=== PATIENT | female | born 1975 | race Caucasian/White ===

== ENCOUNTER 2017-03-19 18:41 | Emergency (ER) | payer OTHER ==
[2017-03-19 18:55] VITALS: BP 128/81; TEMP 98.1; BMI 26.9
[2017-03-19] MEDS ORDERED: XOPENEX 1.25 MG NEB STA (19:01)
[2017-03-19] MEDS ORDERED: DECADRON 4 MG/ML SDV IM STA (19:01)
[2017-03-19] MEDS ORDERED: DUONEB NEB STA (19:01)
--- NOTE | 2017-03-19 19:23 | CT ---
Exam: CT of the chest without contrast History: Cough Technique: [address] of the chest without intravascular contrast FINDINGS: Lung windows show no significant pulmonary parenchymal opacity. Pectus deformity is pres ent with distortion of cardiac contours. The heart, great vessels and pericardium are unremarkable o therwise. No abnormalities of the chest wall soft tissues. No abnormalities of the upper abdomen. Impression: 1. No acute findings of the chest 2. Pectus deformity
[2017-03-19 19:27] LABS: BASOPHILS % (AUTO) 0.3 % (0.0-3.0); EOSINOPHILS # (AUTO) 0.2 K/ul (0.0-0.7); EOSINOPHILS % (AUTO) 1.7 % (0.0-7.0); HEMATOCRIT 37.4 % (37.0-47.0); IMMATURE GRANULOCYTE % (AUTO) 0.3 % (0.0-5.0); LYMPHOCYTES # (AUTO) 3.6 K/uL (0.60-3.4); LYMPHOCYTES % (AUTO) 34.8 (10.0-50.0); MEAN CORPUSCULAR HEMOGLOBIN 32.6 pg (27.0-31.0); MEAN CORPUSCULAR HGB CONC 34.8 (31.8-35.4); MEAN CORPUSCULAR VOLUME 93.7 fl (81.0-99.0); MONOCYTES # (AUTO) 0.7 K/uL (0.4-2.0); MONOCYTES % (AUTO) 6.8 (0-10); NEUTROPHILS # (AUTO) 5.8 K/ul (2.0-6.9); NEUTROPHILS % (AUTO) 56.1; PLATELET COUNT 258 10^3/uL (140-440); RED BLOOD COUNT 3.99 10^6/ul (4.20-5.40); WHITE BLOOD COUNT 10.26 K/ul (4.6-10.2)
[2017-03-19 19:54] LABS: ALANINE AMINOTRANSFERASE 9 U/L (12-78); ALBUMIN 3.4 g/dL (3.4-5.0); ALKALINE PHOSPHATASE 53 U/L (42-98); ANION GAP 11.7; ASPARTATE AMINO TRANSFERASE 13 U/L (15-37); BILIRUBIN,TOTAL 0.26 mg/dL (0.00-1.20); BLOOD UREA NITROGEN 14 mg/dL (7-18); BUN/CREATININE RATIO 18.91; CALCIUM 8.8 mg/dL (8.2-10.2); CARBON DIOXIDE 25 mmol/L (21-32); CHLORIDE 107 mmol/L (98-107); CREATINE KINASE 85 U/L; CREATININE 0.74 mg/dL (0.60-1.30); GLUCOSE 111 mg/dL (70-110); POTASSIUM 3.7 mmol/L (3.5-5.10); SODIUM 140 mmol/L (136-145); TOTAL PROTEIN 6.5 g/dL (6.4-8.2)
--- NOTE | 2017-03-19 20:18 | ED.PDOC ---
General ED Provider: Dr. BRENDA AVILA-ER Chief Complaint: Respiratory Complaint Stated Complaint: elise had a sinus infection and drained into my chest --i have been coughing and sob-- Time Seen by Physician: 18:45 Mode of Arrival: Walk-In Information Source: Patient, Family Exam Limitations: No limitations Primary Care Provider: YURI BARNETT Nursing and Triage Documentation Reviewed and Agree: Yes Respiratory Complaint Exam - Respiratory Complaint/Exam Onset/Duration: 4 days Symptoms Are: Still present Timing: Intermittent Initial Severity: Mild Current Severity: Mild Location: Chest Character: Reports: Productive cough, Dry cough Aggravating: Reports: URI Alleviating: Reports: Bronchodilators Associated Signs and Symptoms: Reports: Wheezing, Nasal congestion, Sinus discomfort. Denies: Rapid breathing, Dyspnea, Fever, Chills, Chest pain, Pleuritic chest pain, Hemoptysis, Dizziness, Calf pain, Calf swelling, Edema, URI, Hoarseness, Vomiting, Sore throat, Weight loss, Decreased oral intake, Increased thirst, Increased appetite, Increased urination Related History: Reports: Similar episode History of Healthcare-Acquired Pneumonia: No Related Surgical History: Reports: None Pulmonary Embolism Risk Factors: Smoking Cardiac Risk Factors: Reports: Smoking Pseudomonas Risk Factors: Reports: Chronic Lung Disease Status Asthmaticus Risk Factors: Reports: None Home Oxygen Use: No Recent Stress Test: No Recent Echo/LV Function: No Current Antibiotic Use: No Current Asthma Medication Use: Yes Respiratory Distress: None Inadequate Respiratory Effort: No Dysphagia Present: No Stridor Present: No JVD Present: No Accessory Muscle Use: No Retractions: Not Present Diminished Breath Sounds: No Sinus Tenderness: None Grunting Respirations: No Kussmaul Respirations: No Differential Diagnoses: Asthma Review of Systems - Review Of Systems Constitutional: Reports: No symptoms Eyes: Reports: No symptoms Ears, Nose, Mouth, Throat: Reports: No symptoms Respiratory: Reports: Cough, Short of air, Wheezing Cardiac: Reports: No symptoms GI: Reports: No symptoms : Reports: No symptoms Musculoskeletal: Reports: No symptoms Skin: Reports: No symptoms Neurological: Reports: No symptoms Endocrine: Reports: No symptoms Hematologic/Lymphatic: Reports: No symptoms All Other Systems: Reviewed and Negative Past Medical History - Past Medical History Previously Healthy: Yes Endocrine: Reports: DM 2, Dyslipidemia Cardiovascular: Reports: Hypertension Respiratory: Reports: None Hematological: Reports: None Gastrointestinal: Reports: None Genitourinary: Reports: None Neuro/Psych: Reports: None Musculoskeletal: Reports: None Cancer: Reports: None Last Menstrual Period: hysterectomy - Surgical History General Surgical History: Reports: Hysterectomy, Tubal ligation, , Orthopedic - Family History Family History: Reports: Unknown - Social History Smoking Status: Current every day smoker, Heavy tobacco smoker Hx Substance Use: No Alcohol Screening: None Lives: With family Physical Exam - Physical Exam Appearance: Well-appearing, No pain distress, Well-nourished Eyes: MARIYA, EOMI, Conjunctiva clear ENT: Ears normal, Nose normal, Oropharynx normal Neck: Supple Respiratory: Airway patent, Breath sounds equal, Wheezes Cardiovascular: RRR, Pulses normal, No rub, No murmur GI/: Soft, Nontender, No masses, Bowel sounds normal, No Organomegaly Musculoskeletal: Normal strength, ROM intact, No edema, No calf tenderness Skin: Warm, Dry, Normal color Neurological: Sensation intact, Motor intact, Reflexes intact, Cranial nerves intact, Alert, Oriented Psychiatric: Affect appropriate, Mood appropriate Interpretation - Radiology Interpretation Radiology Interpretation By: Radiologist Radiology Results: Negative Exam Interpreted: CT Scan Re-Evaluation - Re-Evaluation Time of Re-Evaluation: 20:19 Status: Improved ("im breathing much better") Vital Signs Stable: Yes Pain Level: 0 Appearance: NAD Lungs: Clear Skin: Warm and Dry Neuro: Alert and Oriented X3 CV: RRR Critical Care Note - Critical Care Note Total Time (mins): 0 Course - Course Hematology/Chemistry: 03/19/17 19:20 03/19/17 19:20 Orders, Labs, Meds: Lab Review 03/19/17 19:20 WBC 10.26 H RBC 3.99 L Hgb 13.0 Hct 37.4 MCV 93.7 MCH 32.6 H MCHC 34.8 RDW Coeff of Ester 12.2 Plt Count 258 Immature Gran % (Auto) 0.3 Neut % (Auto) 56.1 Lymph % (Auto) 34.8 [place] % (Auto) 6.8 Eos % (Auto) 1.7 Baso % (Auto) 0.3 Immature Gran # (Auto) 0.0 Neut # 5.8 Lymph # 3.6 H [place] # 0.7 Eos # 0.2 Baso # 0.0 D-Dimer (Manual) 302.69 Sodium 140 Potassium 3.7 Chloride 107 Carbon Dioxide 25 Anion Gap 11.7 BUN 14 Creatinine 0.74 Estimated GFR (MDRD) 87.00 BUN/Creatinine Ratio 18.91 Glucose 111 H Calcium 8.8 Total Bilirubin 0.26 AST 13 L ALT 9 L Alkaline Phosphatase 53 Total Creatine Kinase 85 Troponin I < 0.0100 Total Protein 6.5 Albumin 3.4 Globulin 3.1 Albumin/Globulin Ratio 1.10 Orders Category Date Time Status EKG-(ED ONLY) Stat CARDIO 03/19/17 18:59 Completed NEBULIZER TREATMENT Stat CARDIO 03/19/17 19:01 Completed BLOOD CULTURE Stat LAB 03/19/17 19:20 Received CBC W/ AUTO DIFF Stat LAB 03/19/17 19:20 Completed COMPREHENSIVE METABOLIC PANEL Stat LAB 03/19/17 19:20 Completed CREATINE KINASE Stat LAB 03/19/17 19:20 Completed D-DIMER Stat LAB 03/19/17 19:20 Completed TROPONIN I Stat LAB 03/19/17 19:20 Completed Dexamethasone 4 mg/ml Inj [Decadron 4 mg/ml Sdv] MEDS 03/19/17 19:01 Discontinued 8 mg IM ONCE STA Ipratropium/Albuterol Neb [Duoneb] MEDS 03/19/17 19:01 Discontinued 1 vial NEB ONCE STA Levalbuterol HCl [Xopenex 1.25 mg] MEDS 03/19/17 19:01 Discontinued 1 vial NEB ONCE STA CT CHEST W/O CONTRAST Stat RADS 03/19/17 18:59 Completed Medications Discontinued Medications Generic Name Dose Route Start Last Admin Trade Name Freq PRN Reason Stop Dose Admin Albuterol/Ipratropium 1 vial 03/19/17 19:01 03/19/17 19:13 Duoneb NEB 03/19/17 19:02 1 vial ONCE STA Administration Dexamethasone Sodium Phosphate 8 mg 03/19/17 19:01 03/19/17 19:24 Decadron 4 Mg/Ml Sdv IM 03/19/17 19:02 8 mg ONCE STA Administration Levalbuterol HCl 1 vial 03/19/17 19:01 03/19/17 19:29 Xopenex 1.25 Mg NEB 03/19/17 19:02 1 vial ONCE STA Administration Vital Signs: Temp Pulse Resp BP Pulse Ox 03/19/17 18:42 98.1 F 72 20 128/81 96 Departure - Departure Time of Disposition: 20:19 Disposition: HOME SELF-CARE Discharge Problem: Asthmatic bronchitis Qualifiers: Asthma severity: mild intermittent Asthma complication type: with acute exacerbation Qualifier Code: (J45.21) Mild intermittent asthma with (acute) exacerbation Instructions: Asthma (ED) Condition: Good Pt referred to PMD for follow-up: Yes Additional Instructions: stop smoking---prednisone 20mg x 2 days then 10mgx 2 days then 5mg x 2 days-- symbicort 160/4.5 2 puffs bid --cotinue rescue inhaler --f/u wtih pcp--monjitor bs while taking the steroids Allergies/Adverse Reactions: Allergies amoxicillin trihydrate [From Augmentin] Adverse Reaction (Verified 03/19/17 18: 51) clarithromycin [From Biaxin] Adverse Reaction (Verified 03/19/17 18:51) potassium clavulanate [From Augmentin] Adverse Reaction (Verified 03/19/17 18:51 ) pregabalin [From Lyrica] Adverse Reaction (Verified 03/19/17 18:51) Home Medications: Ambulatory Orders Duloxetine HCl [Cymbalta] 60 mg PO DAILY 07/23/13 Gabapentin [Neurontin] 300 mg PO TID 07/23/13 Hydrocodone/Acetaminophen [Lortab 7.5-500 Tablet] 7.5 - 325 tab PO TID 07/23/13 Lisinopril/Hydrochlorothiazide [Zestoretic 20-12.5 mg Tab] 12.5 - 20 tab PO BID 07/23/13 Lorazepam [Ativan] 1 mg PO TID 07/23/13 Methotrexate Sodium [Methotrexate] 20 mg PO DIRECTED 07/23/13 Albuterol Sulfate [Proair Hfa] 2 inh PO PRN PRN 09/16/13 Ibuprofen 800 mg PO PRN PRN 09/16/13 Insulin Lispro [Humalog] 1 unit SQ DIRECTED 02/26/15 Fexofenadine HCl [Ronit Allergy] 180 mg PO DAILY PRN 08/04/15 Fluticasone Propionate [Flonase] 1 spray NS BID PRN 08/04/15 Adalimumab [Humira Pen] 03/19/17 Metoclopramide HCl [Reglan] 10 mg PO BID 03/19/17 Pantoprazole Sodium [Protonix] 40 mg PO BID 03/19/17 Disposition Discussed With: Patient, Family
== END 2017-03-19 20:32 | disposition home or self-care (01) ==
LOC: ED 18:41
DX: J45.21 Mild intermittent asthma with (acute) exacerbation (principal); F17.210 Nicotine dependence, cigarettes, uncomplicated; E11.9 Type 2 diabetes mellitus without complications; E78.5 Hyperlipidemia, unspecified; I10 Essential (primary) hypertension; Z79.899 Other long term (current) drug therapy
CPT/HCPCS: 36415; 80053; 82550; 84484; 85025; 85379; 87040; 93005; 93010; 94640; 96372; 99283

== ENCOUNTER 2017-06-18 22:39 | Emergency (ER) ==
[2017-06-18 22:49] VITALS: BP 126/85; TEMP 98.6; BMI 31.6
--- NOTE | 2017-06-18 23:18 | ED.PDOC ---
General ED Provider: Dr. BRENDA AVILA-ER Chief Complaint: Eye Problem Stated Complaint: i went to my eye doctor for "uveitis" and placed on prednisone eye drops--now i am having sinus congestion, yellow drainage and pain behind the eyes Time Seen by Physician: 22:45 Mode of Arrival: Walk-In Information Source: Patient, Family Exam Limitations: No limitations Primary Care Provider: YURI BARNETT Nursing and Triage Documentation Reviewed and Agree: Yes EENT Complaint Exam - Nasal Complaint/Exam Onset/Duration: 2 days Symptoms Are: Still present Timing: Intermittent Initial Severity: Mild Current Severity: Moderate Location: Bilateral, Posterior drainage Aggravating: Reports: URI Alleviating: Reports: None Associated Signs and Symptoms: Reports: Nasal congestion, Sinus pain, Nasal discharge. Denies: Bruising, Hematuria, Hematochezia, Foreign body, Abnormal coags Foreign Body Present: No Septal Hematoma: No Differential Diagnoses: Sinusitis Review of Systems - Review Of Systems Constitutional: Reports: No symptoms Eyes: Reports: Pain Ears, Nose, Mouth, Throat: Reports: Nose discharge Respiratory: Reports: Cough Cardiac: Reports: No symptoms GI: Reports: No symptoms : Reports: No symptoms Musculoskeletal: Reports: No symptoms Skin: Reports: No symptoms Neurological: Reports: No symptoms Endocrine: Reports: No symptoms Hematologic/Lymphatic: Reports: No symptoms All Other Systems: Reviewed and Negative Past Medical History - Past Medical History Previously Healthy: Yes Endocrine: Reports: DM 2, Dyslipidemia Cardiovascular: Reports: Hypertension Respiratory: Reports: None Hematological: Reports: None Gastrointestinal: Reports: None Genitourinary: Reports: None Neuro/Psych: Reports: None Musculoskeletal: Reports: None Cancer: Reports: None Last Menstrual Period: PT HAS HAD A HYSTERECTOMY - Surgical History General Surgical History: Reports: Hysterectomy, Tubal ligation, , Orthopedic - Family History Family History: Reports: Unknown - Social History Smoking Status: Current every day smoker, Heavy tobacco smoker Hx Substance Use: No Alcohol Screening: None Lives: With family - Immunizations Tetanus Shot up to Date: Yes Physical Exam - Physical Exam Appearance: Well-appearing, No pain distress, Well-nourished Pain Distress: Moderate Eyes: MARIYA, EOMI, Conjunctiva clear ENT: Ears normal, Nose normal, Oropharynx normal Neck: Supple Respiratory: Airway patent, Breath sounds clear, Breath sounds equal, Respirations nonlabored Cardiovascular: RRR GI/: Soft Musculoskeletal: Normal strength Skin: Warm, Dry, Normal color Neurological: Sensation intact Psychiatric: Affect appropriate, Mood appropriate Interpretation - Radiology Interpretation Radiology Interpretation By: Radiologist Radiology Results: Negative Exam Interpreted: CT Scan Critical Care Note - Critical Care Note Total Time (mins): 0 Course - Course Orders, Labs, Meds: Orders Category Date Time Status CT SINUSES W/O CONTRAST Stat RADS 06/18/17 22:40 Ordered Vital Signs: Temp Pulse Resp BP Pulse Ox 06/18/17 22:40 98.6 F 80 20 126/85 98 Departure - Departure Time of Disposition: 23:36 Disposition: HOME SELF-CARE Discharge Problem: Uveitis Rhinitis Qualifiers: Rhinitis type: unspecified Chronicity: acute Qualifier Code: (J00) Acute nasopharyngitis [common cold] Instructions: Iritis (ED) Condition: Good Pt referred to PMD for follow-up: Yes Additional Instructions: astelin nasal spray 2 puffs each nostril bid --f/u with your eye doctor tomorrow --this very important!! Allergies/Adverse Reactions: Allergies amoxicillin trihydrate [From Augmentin] Adverse Reaction (Verified 06/18/17 22: 53) PROJECTILE VOMITING clarithromycin [From Biaxin] Adverse Reaction (Verified 06/18/17 22:53) PROJECTILE VOMITING potassium clavulanate [From Augmentin] Adverse Reaction (Verified 06/18/17 22:53 ) PROJECTILE VOMITING pregabalin [From Lyrica] Adverse Reaction (Verified 06/18/17 22:53) Swelling Home Medications: Ambulatory Orders Duloxetine HCl [Cymbalta] 60 mg PO DAILY 07/23/13 Gabapentin [Neurontin] 300 mg PO TID 07/23/13 Hydrocodone/Acetaminophen [Lortab 7.5-500 Tablet] 7.5 - 325 tab PO TID 07/23/13 Lisinopril/Hydrochlorothiazide [Zestoretic 20-12.5 mg Tab] 12.5 - 20 tab PO BID 07/23/13 Lorazepam [Ativan] 1 mg PO TID 07/23/13 Methotrexate Sodium [Methotrexate] 20 mg PO DIRECTED 07/23/13 Albuterol Sulfate [Proair Hfa] 2 inh PO PRN PRN 09/16/13 Ibuprofen 800 mg PO PRN PRN 09/16/13 Insulin Lispro [Humalog] 1 unit SQ DIRECTED 02/26/15 Fexofenadine HCl [Ronit Allergy] 180 mg PO DAILY PRN 08/04/15 Fluticasone Propionate [Flonase] 1 spray NS BID PRN 08/04/15 Adalimumab [Humira Pen] 1 mg SQ DIRECTED 03/19/17 Pantoprazole Sodium [Protonix] 40 mg PO BID 03/19/17 Prednisolone Acetate [Pred Forte] 15 ml OP DIRECTED 06/18/17 Disposition Discussed With: Patient, Family
--- NOTE | 2017-06-18 23:33 | CT ---
EXAM: CT sinus without intravenous contrast 06/18/2017. Sagittal and coronal reformatted images ob tained HISTORY: Sinus pressure COMPARISON: None. FINDINGS: The facial bones appear intact without evidence of fracture. There is no acute osseous a bnormality. Normal aeration is present within the frontal, ethmoidal, sphenoidal the right maxillary sinus. The re is a focal rounded opacity within the inferior and lateral aspect of the left maxillary sinus. T his may represent mucous retention cyst. IMPRESSION: 1. Likely mucous retention cyst of the left maxillary sinus. The paranasal sinuses are otherwise n ormally aerated. 2. Chronic rightward deviation and spurring of the osseous nasal septum.
[2017-06-18] MEDS ORDERED: PHENERGAN 25 MG/ML VIAL IM STA (23:39)
[2017-06-18] MEDS ORDERED: DILAUDID 1 MG/ML SYRINGE IM STA (23:39)
== END 2017-06-19 00:07 | disposition home or self-care (01) ==
LOC: ED 22:39
DX: J00 Acute nasopharyngitis [common cold] (principal); H20.9 Unspecified iridocyclitis; F17.210 Nicotine dependence, cigarettes, uncomplicated
CPT/HCPCS: 96372; 99282

== ENCOUNTER 2017-10-14 22:58 | Emergency (ER) ==
[2017-10-14 23:12] VITALS: BP 116/74; TEMP 101; BMI 27.2
--- NOTE | 2017-10-14 23:25 | ED.PDOC ---
General ED Provider: Dr. JESSE TORRES Chief Complaint: Bite Stated Complaint: Patients Cat bite her yesterday on right Index finger, today its swollen, red, the streal is going up in the forearm Time Seen by Physician: 23:33 Mode of Arrival: Walk-In Information Source: Patient Primary Care Provider: YURI BARNETT Nursing and Triage Documentation Reviewed and Agree: Yes Reviewed sepsis parameters & appropriate labs ordered?: Yes System Inflammatory Response Syndrome: Temp 101F or Greater, Pulse >90 BPM Sepsis Protocol: For patient's 13 years and over: Temp is 96.8 and below OR 101 and greater Pulse >90 BPM Resp >20/minute Acutely Altered Mental Status Are patient's symptoms suggestive of a new infection, such as: -Pneumonia -Skin, Soft Tissue -Endocarditis -UTI -Bone, Joint Infection -Implantable Device -Acute Abdominal Infection -Wound Infection -Meningitis -Blood Stream Catheter Infection -Unknown Skin Complaint Exam - Skin/Soft Tissue Complaint/Exam Symptoms Are: Still present Timing: Constant Initial Severity: Moderate Current Severity: Moderate Character: Reports: Redness, Swelling, Raised, Painful Aggravating: Reports: Touch Alleviating: Reports: None Associated Signs and Symptoms: Reports: Drainage, Tenderness, Red streaks, Joint swelling. Denies: Fever, Chills, Itching, Bruising Related Surgical History: Reports: None Recent Exposure to Others w/Similar Symptoms: No Skin Findings: Present: Erythema Differential Diagnoses: Cellulitis, Lymphadenitis, Other (CAT BITE) Review of Systems - Review Of Systems Constitutional: Reports: No symptoms Eyes: Reports: No symptoms Ears, Nose, Mouth, Throat: Reports: No symptoms Respiratory: Reports: No symptoms Cardiac: Reports: No symptoms GI: Reports: No symptoms : Reports: No symptoms Musculoskeletal: Reports: No symptoms Skin: Reports: Bruising, Lesions Neurological: Reports: No symptoms Endocrine: Reports: No symptoms Hematologic/Lymphatic: Reports: No symptoms All Other Systems: Reviewed and Negative Past Medical History - Past Medical History Previously Healthy: Yes Endocrine: Reports: DM 2, Dyslipidemia Cardiovascular: Reports: Hypertension Respiratory: Reports: None Hematological: Reports: None Gastrointestinal: Reports: None Genitourinary: Reports: None Neuro/Psych: Reports: None Musculoskeletal: Reports: None Cancer: Reports: None Last Menstrual Period: PT HAS HAD A HYSTERECTOMY - Surgical History General Surgical History: Reports: Hysterectomy, Tubal ligation, , Orthopedic - Family History Family History: Reports: Unknown - Social History Smoking Status: Current every day smoker, Heavy tobacco smoker Smoking Cessation Counseling Time: > 10 min Hx Substance Use: No Alcohol Screening: None - Immunizations Tetanus Shot up to Date: Yes (2012) Physical Exam - Physical Exam Appearance: Ill-appearing, Obese Eyes: MARIYA, EOMI, Conjunctiva clear ENT: Ears normal, Nose normal, Oropharynx normal Respiratory: Airway patent, Breath sounds clear, Breath sounds equal, Respirations nonlabored Cardiovascular: RRR, Pulses normal, No rub, No murmur GI/: Soft, Nontender, No masses, Bowel sounds normal, No Organomegaly Musculoskeletal: Normal strength, ROM intact, No edema, No calf tenderness Skin: Warm (RT iNDEX FINGER, RED SWOLLEN, TEDNER. RED STREAK GOING UP IN ARM), Dry, Normal color Neurological: Sensation intact, Motor intact, Reflexes intact, Cranial nerves intact, Alert, Oriented Psychiatric: Affect appropriate, Mood appropriate Critical Care Note - Critical Care Note Total Time (mins): 15 Course - Course Hematology/Chemistry: 10/14/17 23:30 10/14/17 23:30 Orders, Labs, Meds: Lab Review 10/14/17 10/14/17 10/14/17 23:25 23:30 23:30 WBC 7.83 RBC 4.08 L Hgb 13.5 Hct 38.3 MCV 93.9 MCH 33.1 H MCHC 35.2 RDW Coeff of Ester 12.3 Plt Count 176 Immature Gran % (Auto) 0.1 Neut % (Auto) 60.6 Lymph % (Auto) 28.0 [place] % (Auto) 9.8 Eos % (Auto) 1.0 Baso % (Auto) 0.5 Immature Gran # (Auto) 0.0 Neut # 4.7 Lymph # 2.2 [place] # 0.8 Eos # 0.1 Baso # 0.0 Sodium 136 Potassium 3.4 L Chloride 103 Carbon Dioxide 24 Anion Gap 12.4 BUN 7 Creatinine 0.78 Estimated GFR (MDRD) 82.00 BUN/Creatinine Ratio 8.97 Glucose 137 H Lactic Acid Calcium 8.9 Total Bilirubin < 0.3 AST 11 L ALT 11 L Alkaline Phosphatase 52 Total Protein 6.8 Albumin 3.2 L Globulin 3.6 Albumin/Globulin Ratio 0.89 Influenza A (Rapid) Positive by naat H Influenza B (Rapid) Negative by naat 10/14/17 23:30 WBC RBC Hgb Hct MCV MCH MCHC RDW Coeff of Ester Plt Count Immature Gran % (Auto) Neut % (Auto) Lymph % (Auto) [place] % (Auto) Eos % (Auto) Baso % (Auto) Immature Gran # (Auto) Neut # Lymph # [place] # Eos # Baso # Sodium Potassium Chloride Carbon Dioxide Anion Gap BUN Creatinine Estimated GFR (MDRD) BUN/Creatinine Ratio Glucose Lactic Acid 9.1 Calcium Total Bilirubin AST ALT Alkaline Phosphatase Total Protein Albumin Globulin Albumin/Globulin Ratio Influenza A (Rapid) Influenza B (Rapid) Orders Category Date Time Status BLOOD CULTURE Stat LAB 10/14/17 23:30 Received CBC W/ AUTO DIFF Stat LAB 10/14/17 23:30 Completed COMPREHENSIVE METABOLIC PANEL Stat LAB 10/14/17 23:30 Completed LACTIC ACID Stat LAB 10/14/17 23:30 Completed MOLECULAR FLU A/B Stat LAB 10/14/17 23:25 Completed PROCALCITONIN Stat LAB 10/14/17 23:30 Received Ketorolac Tromethamine [Toradol] MEDS 10/14/17 23:49 Discontinued 30 mg IM ONCE STA Metronidazole [Flagyl] MEDS 10/14/17 23:49 Discontinued 500 mg PO ONCE STA Sulfamethoxazole/Trimethoprim [Bactrim Ds 800/160 mg] MEDS 10/14/17 23:49 Discontinued 1 tab PO ONCE STA Medications Discontinued Medications Generic Name Dose Route Start Last Admin Trade Name Freq PRN Reason Stop Dose Admin Ketorolac Tromethamine 30 mg 10/14/17 23:49 10/15/17 00:05 Toradol IM 10/14/17 23:50 30 mg ONCE STA Administration Metronidazole 500 mg 10/14/17 23:49 10/15/17 00:05 Flagyl PO 10/14/17 23:50 500 mg ONCE STA Administration Trimethoprim/Sulfamethoxazole 1 tab 10/14/17 23:49 10/15/17 00:05 Bactrim Ds 800/160 Mg PO 10/14/17 23:50 1 tab ONCE STA Administration Vital Signs: Temp Pulse Resp BP Pulse Ox 10/14/17 22:59 101 F H 84 20 116/74 94 L Departure - Departure Time of Disposition: 23:32 Disposition: HOME SELF-CARE Discharge Problem: Influenza A Cat bite of hand Qualifiers: Encounter type: initial encounter Laterality: right Qualified Code(s): S61.451A - Open bite of right hand, initial encounter Instructions: Animal Bite (ED) Condition: Good Pt referred to PMD for follow-up: Yes Additional Instructions: INCREASE HYDRATION TAKE MEDICATION WITH FOOD Keep hand elevated, Tylenol prn F./U WITH PMD IN 2-3 DAYS Prescriptions: Metronidazole [Flagyl] 500 mg PO Q8HR #30 tablet Oseltamivir Phosphate [Tamiflu] 75 mg PO Q12HR #10 capsule Sulfamethoxazole/Trimethoprim [Bactrim Ds 800/160 mg] 1 tab PO Q12HR #20 tablet Allergies/Adverse Reactions: Allergies amoxicillin trihydrate [From Augmentin] Adverse Reaction (Verified 10/14/17 23: 13) PROJECTILE VOMITING clarithromycin [From Biaxin] Adverse Reaction (Verified 10/14/17 23:13) PROJECTILE VOMITING potassium clavulanate [From Augmentin] Adverse Reaction (Verified 10/14/17 23:13 ) PROJECTILE VOMITING pregabalin [From Lyrica] Adverse Reaction (Verified 10/14/17 23:13) Swelling Home Medications: Ambulatory Orders Duloxetine HCl [Cymbalta] 60 mg PO DAILY 07/23/13 Gabapentin [Neurontin] 300 mg PO TID 07/23/13 Hydrocodone/Acetaminophen [Lortab 7.5-500 Tablet] 7.5 - 325 tab PO TID 07/23/13 Lisinopril/Hydrochlorothiazide [Zestoretic 20-12.5 mg Tab] 12.5 - 20 tab PO BID 07/23/13 Lorazepam [Ativan] 1 mg PO TID 07/23/13 Methotrexate Sodium [Methotrexate] 20 mg PO DIRECTED 07/23/13 Albuterol Sulfate [Proair Hfa] 2 inh PO PRN PRN 09/16/13 Ibuprofen 800 mg PO PRN PRN 09/16/13 Insulin Lispro [Humalog] 1 unit SQ DIRECTED 02/26/15 Fexofenadine HCl [Ronit Allergy] 180 mg PO DAILY PRN 08/04/15 Fluticasone Propionate [Flonase] 1 spray NS BID PRN 08/04/15 Adalimumab [Humira Pen] 40 mg SQ DIRECTED 03/19/17 Pantoprazole Sodium [Protonix] 40 mg PO BID 03/19/17 Prednisolone Acetate [Pred Forte] 15 ml OP DIRECTED 06/18/17 Metronidazole [Flagyl] 500 mg PO Q8HR #30 tablet 10/14/17 Sulfamethoxazole/Trimethoprim [Bactrim Ds 800/160 mg] 1 tab PO Q12HR #20 tablet 10/14/17 Oseltamivir Phosphate [Tamiflu] 75 mg PO Q12HR #10 capsule 10/15/17 Disposition Discussed With: Patient, Family
[2017-10-14] MEDS ORDERED: FLAGYL PO STA (23:49)
[2017-10-14] MEDS ORDERED: BACTRIM DS 800/160 MG PO STA (23:49)
[2017-10-14] MEDS ORDERED: TORADOL IM STA (23:49)
[2017-10-15] MEDS ORDERED: TAMIFLU PO STA (00:10)
== END 2017-10-15 00:37 | disposition home or self-care (01) ==
LOC: ED 22:58
DX: S61.250A Open bite of right index finger without damage to nail, initial encounter (principal); J09.X2 Influenza due to identified novel influenza A virus with other respiratory manifestations; W55.01XA Bitten by cat, initial encounter; E11.9 Type 2 diabetes mellitus without complications; E78.5 Hyperlipidemia, unspecified; I10 Essential (primary) hypertension; F17.210 Nicotine dependence, cigarettes, uncomplicated; Z79.899 Other long term (current) drug therapy
CPT/HCPCS: 36415; 80053; 83605; 84145; 85025; 87040; 87502; 96372; 99283

== ENCOUNTER 2018-03-02 12:54 | Outpatient (CLI) | payer OTHER ==
[2018-03-02] MEDS ORDERED: ALBUTEROL 0.083% NEB NEB STA (13:11)
--- NOTE | 2018-03-02 14:18 | DI ---
EXAM: Chest two view, frontal and lateral views. HISTORY: Shortness of breath. COMPARISON: 03/19/2017. FINDINGS: The heart size is normal. There is no pulmonary vascular congestion. The lungs are clear . No pleural effusion or pneumothorax is seen. No acute osseous abnormality identified. Pectus def ormity again noted. Cholecystectomy clips are present. Since the prior study, there has been no sign ificant interval change. IMPRESSION: No acute cardiopulmonary process.
== END 2018-03-02 12:55 | disposition home or self-care (01) ==
LOC: CAR 12:54
PROVIDERS: ATTEND Family Medicine
DX: R06.02 Shortness of breath (principal)